=== PATIENT | male | born 1945 | race Caucasian/White ===

== ENCOUNTER 2020-05-27 11:22 | Inpatient (IN) | payer MEDICARE, OTHER ==
[~2020-05-27] VITALS: Ht 175.3 cm; Wt 88.1 kg
--- NOTE | 2020-05-27 12:20 | NUR ---
PT IS IN ROOM #1B. DR JAMA EVALUATED THE PT.
[2020-05-27 12:23] LABS: BASOPHILS % (AUTO) 0.4 % (0.0-2.0); EOSINOPHILS # (AUTO) 0.2 K/uL (0.0-0.7); LYMPHOCYTES # (AUTO) 0.6 K/uL (20.0-40.0); LYMPHOCYTES % (AUTO) 11.3 % (20.5-51.5); MEAN CORPUSCULAR HEMOGLOBIN 30.6 uug (23.8-33.4); MEAN CORPUSCULAR HGB CONC 34 g/dL (32.5-36.3); MEAN CORPUSCULAR VOLUME 91.2 fL (73.0-96.2); MONOCYTES # (AUTO) 0.6 K/uL (2.0-10.0); NEUTROPHILS # (AUTO) 4.2 K/uL (1.8-8.9); NEUTROPHILS % (AUTO) 75.3 % (38.5-71.5); PLATELET COUNT (AUTO) 119 K/uL (152-348); WHITE BLOOD COUNT (AUTO) 5.6 K/uL (3.6-10.2)
[2020-05-27 12:33] LABS: RED BLOOD CELL COUNT(AUTO) 2.12 MIL/uL (4.06-5.63)
[2020-05-27 12:35] LABS: CHLORIDE 107 mmol/L (98-107); GLUCOSE 177 mg/dL (74-106); HEMATOCRIT 19.4 % (36.7-47.1); HEMOGLOBIN 6.5 g/dL (12.5-16.3)
[2020-05-27 12:36] LABS: CARBON DIOXIDE 7 mmol/L (21-32)
[2020-05-27] MEDS ORDERED: ARIP10TA9 PO (12:36)
[2020-05-27] MEDS ORDERED: PARO25TA16 PO (12:36)
[2020-05-27] MEDS ORDERED: TAMS-3 PO (12:36)
[2020-05-27] MEDS ORDERED: FINA5TAB11 PO (12:36)
[2020-05-27] MEDS ORDERED: QUET100T PO (12:36)
[2020-05-27] MEDS ORDERED: INSU100I26 SQ (12:36)
[2020-05-27] MEDS ORDERED: QUET200T PO (12:36)
[2020-05-27] MEDS ORDERED: PANT40TA2 PO (12:36)
[2020-05-27] MEDS ORDERED: SENN-261 PO (12:36)
[2020-05-27] MEDS ORDERED: ERGO500040 PO (12:36)
[2020-05-27] MEDS ORDERED: CLON0.1T PO (12:36)
[2020-05-27] MEDS ORDERED: CALC667T2 PO (12:36)
[2020-05-27] MEDS ORDERED: FOLI0.8T2 PO (12:36)
[2020-05-27 12:40] LABS: ALANINE AMINOTRANSFERASE 59 U/L (16-63); ALKALINE PHOSPHATASE 135 U/L (50-136); ASPARTATE AMINOTRANSFERASE 13 U/L (15-37); BILIRUBIN,DIRECT 0.1 mg/dL (0.0-0.2); BILIRUBIN,TOTAL 0.4 mg/dL (0.2-1.0); LIPASE 32 U/L (73-393); TOTAL PROTEIN, SERUM 7.6 g/dL (6.4-8.2)
[2020-05-27 12:42] LABS: CREATININE 12.3 mg/dL (0.6-1.3); UREA NITROGEN, BLOOD 235 mg/dL (7-18)
[2020-05-27] MEDS ORDERED: NEBI10TA2 PO (12:43)
[2020-05-27] MEDS ORDERED: ASPI-605 PO (12:43)
[2020-05-27] MEDS ORDERED: NUT.237L36 PO (12:43)
[2020-05-27] MEDS ORDERED: DOXE50CA4 PO (12:43)
[2020-05-27] MEDS ORDERED: ROSU40TA PO (12:43)
[2020-05-27] MEDS ORDERED: FURO80TA3 PO (12:43)
[2020-05-27] MEDS ORDERED: VITAMIN A&D OINTMENT TP (12:43)
[2020-05-27] MEDS ORDERED: INSU100C SQ ×2 (12:43→12:50)
[2020-05-27] MEDS ORDERED: LOSA1TAB42 PO (12:43)
[2020-05-27] MEDS ORDERED: ACET650S24 RC (12:50)
[2020-05-27 13:39] LABS: BAND % (MANUAL) 2 % (0-10); EOSINOPHILS % (MANUAL) 4 % (0-8); LYMPHOCYTES % (MANUAL) 10 % (20-40); MONOCYTES % (MANUAL) 8 % (2-10); NEUTROPHILS % (MANUAL) 76 % (42-75)
[2020-05-27] MEDS ORDERED: MAGNESIUM HYDROXIDE 30 ML LIQUID UDC PO PRN (13:45)
[2020-05-27] MEDS ORDERED: ACETAMINOPHEN 650 MG SUPP.RECT RC PRN (13:45)
[2020-05-27] MEDS ORDERED: Z GUARD REMEDY PASTE 57 GM TUBE TOP PRN (13:45)
[2020-05-27] MEDS ORDERED: ONDANSETRON 4 MG/2 ML VIAL IV PRN (13:45)
[2020-05-27] MEDS ORDERED: HYDROCODONE/APAP 5-325MG TABLET PO PRN (13:45)
[2020-05-27] MEDS ORDERED: CLONIDINE HCL 0.1 MG TABLET PO PRN (13:45)
[2020-05-27 14:17] LABS: IRON, SERUM 177 ug/dL (50-175)
[2020-05-27 16:00] VITALS: BP 106/49
--- NOTE | 2020-05-27 16:43 | NUR ---
PT WAS TRANSFERED TO ROOM #327. REPORT WAS GIVEN TO PRINT WASHER.
[2020-05-27] MEDS ORDERED: PAROXETINE HCL 30 MG PO SCH (17:00)
[2020-05-27] MEDS: PANTOPRAZOLE SODIUM 40 MG TABLET.DR PO SCH (17:40)
[2020-05-27] MEDS: FUROSEMIDE 40 MG TABLET PO SCH (17:40)
[2020-05-27] MEDS: METOPROLOL TARTRATE 50 MG TABLET PO SCH (17:46)
[2020-05-27] MEDS: ATORVASTATIN 40 MG TABLET PO SCH (18:00)
[2020-05-27] MEDS ORDERED: HEPARIN SODIUM,PORCINE/PF 100 UNIT/ML, 5ML SYR ONE ×4 (19:15→20:00)
[2020-05-27] MEDS: CALCIUM ACETATE 667 MG CAPSULE PO SCH (19:43)
[2020-05-27] MEDS ORDERED: HEPARIN SODIUM,PORCINE 5,000 UNITS/ML VIAL SQ SCH (19:45)
[2020-05-27] MEDS ORDERED: HEPARIN SODIUM,PORCINE/PF 100 UNIT/ML, 5ML SYR XX PRN (20:00)
--- NOTE | 2020-05-27 20:01 | NUR ---
PATIENT RECEIVED IN STABLE CONDITION;PATIENT WAS DUE FOR DIALYSIS BUT PATIENT DID NOT HAVE DIALYSIS PORT AVAILABLE; MD ORDER A UNIT OF BLOOD DUE TO LOW HEMOGLOBIN ; WHEN BLOOD BROUGHT UP FROM PRODUCT WAS UNABLE TO SCAN ; BLOOD BROUGHT BACK DOWN AND LAB HAD TO TAKE BLOOD AND RELABELED AND STATED WOULD CALL WHEN BLOOD WOULD BE READY; MD DICKSON ARRIVED TO PLACE PORT. REPORT GIVEN TO ONCOMING NURSE.
--- NOTE | 2020-05-27 20:14 | NUR ---
Caesar cath inserted at bedside by Dr. Rainey in the right femoral vein, triple lumen.
--- NOTE | 2020-05-27 20:15 | NUR ---
Patient will be started on Dialysis, dialysis nurse in room.
[2020-05-27 20:38] VITALS: BP 115/57
--- NOTE | 2020-05-27 20:41 | NUR ---
Blood product given to dialysis nurse.
[2020-05-27] MEDS ORDERED: EPOETIN ALFA 20,000 UNIT/ML ML SQ ONE (21:00)
[2020-05-27] MEDS: DOXEPIN 25 MG CAPSULE PO SCH ×2 (21:00→23:56)
--- NOTE | 2020-05-27 22:09 | NUR ---
Confirmed with Dr. Cruz, only 1 unit of blood to be given. Blood transfusion finished.
[2020-05-27] MEDS: SENNOSIDES 1 TABLET PO SCH (22:24)
[2020-05-27] MEDS: QUETIAPINE FUMARATE 200 MG TABLET PO SCH (22:24)
--- NOTE | 2020-05-27 22:30 | NUR ---
Dr. Cruz came and examined patient.
--- NOTE | 2020-05-27 22:30 | NUR ---
Per Dr. Rainey, heparin only given if diaysis nurse needs it. Spoke to Chaitanya, stated he did not need the heparin. Charge nurse aware.
--- NOTE | 2020-05-27 22:35 | NUR ---
Patient was on TELE monitor, spoke to Dr. Cruz and he said that his order was Medsurg. Removed TELE box.
[2020-05-27] MEDS ORDERED: DOXEPIN 25 MG CAPSULE ONE (23:43)
--- NOTE | 2020-05-27 23:57 | NUR ---
Administered Doxepin late, medication was not available. Waited for supervisor travel trailer to bring medication.
[2020-05-28] VITALS (8 sets, daily range): BP systolic 89–119; BP diastolic 43–67
[2020-05-28 07:02] LABS: BASOPHILS % (AUTO) 0.3 % (0.0-2.0); EOSINOPHILS % (AUTO) 0.5 % (0.0-7.0); LYMPHOCYTES # (AUTO) 0.3 K/uL (20.0-40.0); LYMPHOCYTES % (AUTO) 5.7 % (20.5-51.5); MEAN CORPUSCULAR HEMOGLOBIN 30.3 uug (23.8-33.4); MEAN CORPUSCULAR HGB CONC 34 g/dL (32.5-36.3); MEAN CORPUSCULAR VOLUME 88.1 fL (73.0-96.2); MONOCYTES # (AUTO) 0.5 K/uL (2.0-10.0); MONOCYTES % (AUTO) 8.7 % (0.0-11.0); NEUTROPHILS # (AUTO) 5.1 K/uL (1.8-8.9); NEUTROPHILS % (AUTO) 84.8 % (38.5-71.5); PLATELET COUNT (AUTO) 107 K/uL (152-348)
[2020-05-28 07:04] LABS: HEMOGLOBIN 7.2 g/dL (12.5-16.3); RED BLOOD CELL COUNT(AUTO) 2.38 MIL/uL (4.06-5.63)
[2020-05-28 07:18] LABS: CARBON DIOXIDE 11 mmol/L (21-32); CHLORIDE 109 mmol/L (98-107); CHOLESTEROL 94 mg/dL (<200); GLUCOSE 129 mg/dL (74-106); HDL CHOLESTEROL 19 mg/dL (40-60); POTASSIUM 3.5 mmol/L (3.5-5.1); TRIGLYCERIDES 313 MG/DL (30-150)
--- NOTE | 2020-05-28 08:05 | NUR ---
pt is awake, responsive, no distress noted. Left hand heplock is intact. R femeral [place] port is intact, no bleeding. Breathing is non labored. side rails are up, bed is in low position. Pt is on 2L/m oxygen via [place]. Pt is A/O x 2-3
[2020-05-28 08:06] LABS: UREA NITROGEN, BLOOD 161 mg/dL (7-18)
[2020-05-28] MEDS ORDERED: HYDROCHLOROTHIAZIDE 12.5 MG CAPSULE PO SCH (09:00)
[2020-05-28] MEDS ORDERED: LOSARTAN POTASSIUM 50 MG TABLET PO SCH (09:00)
[2020-05-28] MEDS: METOPROLOL TARTRATE 50 MG TABLET PO SCH ×2 (09:00→17:00)
[2020-05-28] MEDS ORDERED: Medication Not On Formulary EA (Losartan/Hydrochlorothiazide (Losartan-Hctz 100-12.5 Mg PO SCH (09:00)
[2020-05-28] MEDS: FOLIC ACID/VITAMIN B COMP W-C TABLET PO SCH (09:52)
[2020-05-28] MEDS: ASPIRIN EC 81 MG TABLET.DR PO SCH (09:52)
[2020-05-28] MEDS: PANTOPRAZOLE SODIUM 40 MG TABLET.DR PO SCH ×2 (09:53→18:06)
[2020-05-28] MEDS: FINASTERIDE 5 MG TABLET PO SCH (09:53)
[2020-05-28] MEDS: QUETIAPINE FUMARATE 100 MG TABLET PO SCH (09:53)
[2020-05-28] MEDS: ARIPIPRAZOLE 10 MG TABLET PO SCH (09:53)
[2020-05-28] MEDS: FUROSEMIDE 40 MG TABLET PO SCH (09:53)
[2020-05-28] MEDS: CALCIUM ACETATE 667 MG CAPSULE PO SCH ×3 (09:54→18:06)
--- NOTE | 2020-05-28 12:00 | NUR ---
Pt completed dialysis, 1000 cc fluid removed, Pt tolerated well, no distress noted.
[2020-05-28] MEDS: SEVELAMER CARBONATE 800 MG TABLET PO SCH (18:05)
[2020-05-28] MEDS: ATORVASTATIN 40 MG TABLET PO SCH (18:06)
--- NOTE | 2020-05-28 19:29 | NUR ---
BLOOD TRANSFUSION ENDED AT 1600H. NO SIGNS OF INTERACTION. AM NURSE FORGOT TO CLICK THE END TRANSFUSION. PT IN NO ACUTE DISTRESS. WILL CONTINUE TO MONITOR.
--- NOTE | 2020-05-28 19:30 | NUR ---
RECEIVED PT IN NO ACUTE DISTRESS. IV INTACT . DAVID CATH INTACT. SAFETY AND COMFORT PROVIDED. WILL CONTINUE TO MONITOR.
[2020-05-28] MEDS: QUETIAPINE FUMARATE 200 MG TABLET PO SCH (20:09)
[2020-05-28] MEDS: ACETAMINOPHEN 325 MG TABLET PO PRN (20:09)
[2020-05-28] MEDS: TAMSULOSIN HCL 0.4 MG CAP.SR.24H PO SCH (20:10)
[2020-05-28] MEDS: SENNOSIDES 1 TABLET PO SCH (20:10)
[2020-05-29 04:00] VITALS: BP 99/49
--- NOTE | 2020-05-29 06:19 | NUR ---
PT IN NO ACUTE RESPIRATORY DISTRESS. IV INTACT. DAVID CATH INTACT. PRESCRIBED MEDICATION GIVEN AND PT TOLERATED IT WELL. PT TURNED AND REPOSITIONED. SAFETY AND COMFORT PROVIDED. ALL NEEDS ARE MET. WILL ENDORSE TO INCOMING NURSE FOR CONTINUITY OF CARE.
[2020-05-29 06:20] LABS: BASOPHILS % (AUTO) 0.6 % (0.0-2.0); EOSINOPHILS % (AUTO) 0.6 % (0.0-7.0); HEMATOCRIT 22.9 % (36.7-47.1); HEMOGLOBIN 7.8 g/dL (12.5-16.3); LYMPHOCYTES # (AUTO) 0.6 K/uL (20.0-40.0); LYMPHOCYTES % (AUTO) 12.6 % (20.5-51.5); MEAN CORPUSCULAR HGB CONC 34 g/dL (32.5-36.3); MONOCYTES # (AUTO) 0.7 K/uL (2.0-10.0); MONOCYTES % (AUTO) 15.3 % (0.0-11.0); NEUTROPHILS # (AUTO) 3.2 K/uL (1.8-8.9); NEUTROPHILS % (AUTO) 70.9 % (38.5-71.5); PLATELET COUNT (AUTO) 93 K/uL (152-348); WHITE BLOOD COUNT (AUTO) 4.5 K/uL (3.6-10.2)
[2020-05-29 06:28] LABS: CARBON DIOXIDE 21 mmol/L (21-32); CHLORIDE 115 mmol/L (98-107); CREATININE 6.5 mg/dL (0.6-1.3); GLUCOSE 191 mg/dL (74-106)
[2020-05-29 06:29] LABS: UREA NITROGEN, BLOOD 90 mg/dL (7-18)
--- NOTE | 2020-05-29 08:00 | NUR ---
Received pt in bed alert x 4,with O2 at 2 LPM via [place],denies pain or discomfort,HOB elevated,LT forearm IV 22 g intact,no signs and symptoms infiltration,Rt femoral roseline catheter in place , no signs and symptoms of infection, site clean and dry, safety measures in place, call light with in reach ,will continue to monitor.
[2020-05-29] MEDS: PANTOPRAZOLE SODIUM 40 MG TABLET.DR PO SCH ×2 (08:41→17:08)
[2020-05-29] MEDS: ARIPIPRAZOLE 10 MG TABLET PO SCH (08:41)
[2020-05-29] MEDS: SEVELAMER CARBONATE 800 MG TABLET PO SCH ×3 (08:42→17:08)
[2020-05-29] MEDS: ASPIRIN EC 81 MG TABLET.DR PO SCH (08:42)
[2020-05-29] MEDS: FINASTERIDE 5 MG TABLET PO SCH (08:42)
[2020-05-29] MEDS: LOSARTAN POTASSIUM 50 MG TABLET PO SCH (08:43)
[2020-05-29] MEDS: QUETIAPINE FUMARATE 100 MG TABLET PO SCH (08:44)
[2020-05-29] MEDS: CALCIUM ACETATE 667 MG CAPSULE PO SCH ×3 (08:44→17:08)
[2020-05-29] MEDS: FOLIC ACID/VITAMIN B COMP W-C TABLET PO SCH (08:44)
[2020-05-29] MEDS: METOPROLOL TARTRATE 50 MG TABLET PO SCH ×2 (08:44→17:09)
--- NOTE | 2020-05-29 09:00 | NUR ---
Pt states he feels nauseous, enrichment specialist stated patient had 1x episodes of emesis,will provide patient with PRN zofran ,will keep head of bed elevated to prevent aspiration, will give patient green vomit bag.will continue to monitor.
--- NOTE | 2020-05-29 10:26 | NUR ---
Dialysis nurse in room
[2020-05-29] MEDS ORDERED: ALBUMIN HUMAN 25% 100 ML IV ONE (11:30)
[2020-05-29 11:32] VITALS: BP 103/38
[2020-05-29 11:54] LABS: EOSINOPHILS % (MANUAL) 1 % (0-8); LYMPHOCYTES % (MANUAL) 14 % (20-40); MONOCYTES % (MANUAL) 16 % (2-10); NEUTROPHILS % (MANUAL) 69 % (42-75)
[2020-05-29 12:44] LABS: HEPATITIS B SURFACE AB Non Reactive (.); HEPATITIS B SURFACE AG Negative (Negative)
--- NOTE | 2020-05-29 14:02 | NUR ---
Dialysis complete, no fluid removed, Pt stable, SCD pumps on for DVt ppx.
[2020-05-29] MEDS ORDERED: POTASSIUM CHLORIDE 10 MEQ TAB.PRT.SR PO ONE (14:30)
[2020-05-29 16:24] VITALS: BP 117/59
[2020-05-29] MEDS: ATORVASTATIN 40 MG TABLET PO SCH (17:08)
--- NOTE | 2020-05-29 20:00 | NUR ---
Patient received into care resting in bed awake and alert, and oriented x3 and has no complaints of pain or discomfort at this time. Left FA IV cath is patent, intact, and flushing easily. All safety and fall precaution measures are in place. Call light and personal items are within reach. Will continue to monitor and assess.
[2020-05-29 20:06] VITALS: BP 130/52
[2020-05-29] MEDS: QUETIAPINE FUMARATE 200 MG TABLET PO SCH (21:13)
[2020-05-29] MEDS: SENNOSIDES 1 TABLET PO SCH (21:13)
[2020-05-29] MEDS: TAMSULOSIN HCL 0.4 MG CAP.SR.24H PO SCH (21:13)
[2020-05-29] MEDS: DOXEPIN 25 MG CAPSULE PO SCH (21:14)
[2020-05-30] VITALS (8 sets, daily range): BP systolic 90–118; BP diastolic 43–68
--- NOTE | 2020-05-30 05:00 | NUR ---
Patient slept throughout night without any complaints of pain/discomfort or acute distress. All prescribed medications provided as ordered and tolerated well, with no adverse side effects verbalized by patient or noted/observed by this nurse. All safety and fall precautions remain in place. All personal items and call light remain within reach.
[2020-05-30 06:36] LABS: LYMPHOCYTES # (AUTO) 0.6 K/uL (20.0-40.0); MONOCYTES # (AUTO) 0.6 K/uL (2.0-10.0); NEUTROPHILS # (AUTO) 2.4 K/uL (1.8-8.9)
[2020-05-30 06:38] LABS: BASOPHILS % (AUTO) 0.8 % (0.0-2.0); EOSINOPHILS # (AUTO) 0.2 K/uL (0.0-0.7); EOSINOPHILS % (AUTO) 3.9 % (0.0-7.0); HEMATOCRIT 21.2 % (36.7-47.1); LYMPHOCYTES % (AUTO) 16.8 % (20.5-51.5); MEAN CORPUSCULAR HEMOGLOBIN 29.7 uug (23.8-33.4); MEAN CORPUSCULAR HGB CONC 34 g/dL (32.5-36.3); MEAN CORPUSCULAR VOLUME 87.6 fL (73.0-96.2); NEUTROPHILS % (AUTO) 62.5 % (38.5-71.5); PLATELET COUNT (AUTO) 90 K/uL (152-348); WHITE BLOOD COUNT (AUTO) 3.9 K/uL (3.6-10.2)
[2020-05-30 06:40] LABS: RED BLOOD CELL COUNT(AUTO) 2.42 MIL/uL (4.06-5.63)
[2020-05-30 06:44] LABS: CARBON DIOXIDE 26 mmol/L (21-32); CHLORIDE 112 mmol/L (98-107); CREATININE 4.8 mg/dL (0.6-1.3); GLUCOSE 115 mg/dL (74-106); MAGNESIUM 1.8 mg/dL (1.8-2.4); PHOSPHOROUS 5.4 mg/dL (2.5-4.9); POTASSIUM 3.5 mmol/L (3.5-5.1); UREA NITROGEN, BLOOD 52 mg/dL (7-18)
[2020-05-30 06:47] LABS: HEMOGLOBIN 7.2 g/dL (12.5-16.3)
[2020-05-30] MEDS: ASPIRIN EC 81 MG TABLET.DR PO SCH (08:11)
[2020-05-30] MEDS: CALCIUM ACETATE 667 MG CAPSULE PO SCH ×3 (08:11→17:33)
[2020-05-30] MEDS: FINASTERIDE 5 MG TABLET PO SCH (08:11)
[2020-05-30] MEDS: ARIPIPRAZOLE 10 MG TABLET PO SCH (08:11)
[2020-05-30] MEDS: FOLIC ACID/VITAMIN B COMP W-C TABLET PO SCH (08:12)
[2020-05-30] MEDS: SEVELAMER CARBONATE 800 MG TABLET PO SCH ×3 (08:12→17:33)
[2020-05-30] MEDS: PANTOPRAZOLE SODIUM 40 MG TABLET.DR PO SCH ×2 (08:12→16:49)
[2020-05-30] MEDS: QUETIAPINE FUMARATE 100 MG TABLET PO SCH (08:12)
[2020-05-30] MEDS: METOPROLOL TARTRATE 50 MG TABLET PO SCH ×2 (08:45→16:49)
[2020-05-30] MEDS: LOSARTAN POTASSIUM 50 MG TABLET PO SCH (08:45)
[2020-05-30 09:22] LABS: EOSINOPHILS % (MANUAL) 4 % (0-8); LYMPHOCYTES % (MANUAL) 17 % (20-40); MONOCYTES % (MANUAL) 15 % (2-10); NEUTROPHILS % (MANUAL) 64 % (42-75)
--- NOTE | 2020-05-30 11:04 | NUR ---
WOUND CARE CONSULT: PT PRESENTS WITH PARTIAL THICKNESS WOUND TO RT LOWER BUTTOCK WHICH HE (PT) STATES HE HAS HAD FOR ABOUT A MONTH. PT ALSO NOTED TO HAVE BILATERAL LOWER LEG DRY SCABS, PRESENT ON ADMISSION. PT STATES THAT HE PREVIOUSLY HAD ITCHY LEGS AND SCRATCHED HIS LOWER LEGS. NO ERYTHEMA, DRAINAGE OR TENDERNESS NOTED. CURRENT RUSTY SCORE IS 18. WILL SEE PRN. BURNHAM IN AGREEMENT WITH PLAN OF CARE. Addendum: 05/30/20 at 1106 by DAINA HUERTA RN Amended: Links added.
--- NOTE | 2020-05-30 12:14 | NUR ---
one unit prbc given with dialysis without any adverse reaction noted,vs are stable
--- NOTE | 2020-05-30 14:33 | NUR ---
dialysis done 500ml fluids removed
[2020-05-30] MEDS: ATORVASTATIN 40 MG TABLET PO SCH (17:33)
--- NOTE | 2020-05-30 20:00 | NUR ---
Patient received into care, laying in bed asleep, but easy to rouse. Patient is alert/oriented x3 and has no complaints of pain or discomfort at this time. All safety and fall precaution measures are in place. Strict I&Os for pt noted and will be carried out this shift. Call light and personal items within reach at all times. Will continue to monitor and assess.
--- NOTE | 2020-05-30 20:22 | NUR ---
This nurse was notified by MILL ORDER SCHEDULER that pt has a temperature of 99.6. This nurse will institute cooling measures and provide pt PRN Tylenol to address increased body temperature.
[2020-05-30] MEDS: TAMSULOSIN HCL 0.4 MG CAP.SR.24H PO SCH (20:40)
[2020-05-30] MEDS: SENNOSIDES 1 TABLET PO SCH (20:40)
[2020-05-30] MEDS: QUETIAPINE FUMARATE 200 MG TABLET PO SCH (20:40)
[2020-05-30] MEDS: DOXEPIN 25 MG CAPSULE PO SCH (20:40)
[2020-05-30] MEDS: ACETAMINOPHEN 325 MG TABLET PO PRN (20:40)
--- NOTE | 2020-05-31 | NUR ---
Received report from CARLOS EDUARDO Carrasquillo. Patient in bed, sleeping easy to arouse. Patient has no signs of acute distress or pain at this time. Patient is afebrile (98.9). Safety measures in place. Bed low and locked in position. Call light and personal belongings within reach. Will continue with the plan of care.
[2020-05-31 06:14] VITALS: BP 123/63
[2020-05-31 06:44] LABS: BASOPHILS % (AUTO) 0.8 % (0.0-2.0); EOSINOPHILS # (AUTO) 0.3 K/uL (0.0-0.7); EOSINOPHILS % (AUTO) 6.1 % (0.0-7.0); HEMATOCRIT 23.5 % (36.7-47.1); HEMOGLOBIN 8.2 g/dL (12.5-16.3); LYMPHOCYTES # (AUTO) 0.9 K/uL (20.0-40.0); LYMPHOCYTES % (AUTO) 19.7 % (20.5-51.5); MEAN CORPUSCULAR HEMOGLOBIN 30.6 uug (23.8-33.4); MEAN CORPUSCULAR HGB CONC 35 g/dL (32.5-36.3); MEAN CORPUSCULAR VOLUME 87.9 fL (73.0-96.2); MONOCYTES # (AUTO) 0.7 K/uL (2.0-10.0); MONOCYTES % (AUTO) 13.9 % (0.0-11.0); NEUTROPHILS # (AUTO) 2.9 K/uL (1.8-8.9); NEUTROPHILS % (AUTO) 59.5 % (38.5-71.5); PLATELET COUNT (AUTO) 81 K/uL (152-348); RED BLOOD CELL COUNT(AUTO) 2.68 MIL/uL (4.06-5.63); WHITE BLOOD COUNT (AUTO) 4.8 K/uL (3.6-10.2)
[2020-05-31 07:00] LABS: CARBON DIOXIDE 30 mmol/L (21-32); CHLORIDE 109 mmol/L (98-107); CREATININE 3.8 mg/dL (0.6-1.3); GLUCOSE 105 mg/dL (74-106); MAGNESIUM 1.8 mg/dL (1.8-2.4); PHOSPHOROUS 3.7 mg/dL (2.5-4.9); POTASSIUM 3.6 mmol/L (3.5-5.1); UREA NITROGEN, BLOOD 40 mg/dL (7-18)
--- NOTE | 2020-05-31 07:03 | NUR ---
Patient slept intermittently through the night. Patient is awake and denies any acute distress or pain at this time. Vitals are stable. Comfort care and needs attended. Fall precaution maintained. Safety measures in place. Bed low and locked in position. Call light and personal belongings within reach. Will endorse to the oncoming nurse accordingly.
[2020-05-31] MEDS ORDERED: DEXTROSE 50% 50 ML DISP.SYRIN IV PRN (07:30)
--- NOTE | 2020-05-31 07:43 | NUR ---
RECEIVED PATIENT IN BED, ASLEEP, EASY TO WAKE UP, AOX3. DENIES SOB OR CHEST PAIN. NO SIGNS OF DISTRESS AT THIS TIME. PAIN MANAGEMENT HAS BEEN ADDRESSED AND PATIENT DENIES PAIN AT THIS TIME. ALL NEEDS MET AT THIS TIME. SAFETY AND FALL PREVENTION IN PLACE. BED LOW AND LOCKED. CALL LIGHT IN REACH. WILL CONTINUE TO MONITOR.
[2020-05-31] MEDS: BLOOD SUGAR DIAGNOSTIC 1 EACH STRIP VI SCH ×4 (08:30→21:07)
[2020-05-31] MEDS: ARIPIPRAZOLE 10 MG TABLET PO SCH (08:33)
[2020-05-31] MEDS: SEVELAMER CARBONATE 800 MG TABLET PO SCH ×3 (08:33→17:00)
[2020-05-31] MEDS: FINASTERIDE 5 MG TABLET PO SCH (08:33)
[2020-05-31] MEDS: CALCIUM ACETATE 667 MG CAPSULE PO SCH ×3 (08:36→17:01)
[2020-05-31] MEDS: ASPIRIN EC 81 MG TABLET.DR PO SCH (08:37)
[2020-05-31] MEDS: QUETIAPINE FUMARATE 100 MG TABLET PO SCH (08:37)
[2020-05-31] MEDS: METOPROLOL TARTRATE 50 MG TABLET PO SCH ×2 (08:37→17:01)
[2020-05-31] MEDS: LOSARTAN POTASSIUM 50 MG TABLET PO SCH (08:37)
[2020-05-31] MEDS: PANTOPRAZOLE SODIUM 40 MG TABLET.DR PO SCH ×2 (08:37→17:01)
[2020-05-31] MEDS: FOLIC ACID/VITAMIN B COMP W-C TABLET PO SCH (08:38)
[2020-05-31 12:34] VITALS: BP 117/58
[2020-05-31] MEDS: INSULIN REGULAR, HUMAN 300 UNIT/3 ML VIAL SQ PRN (13:12)
[2020-05-31 16:25] VITALS: BP 115/58
[2020-05-31] MEDS: ATORVASTATIN 40 MG TABLET PO SCH (17:01)
--- NOTE | 2020-05-31 19:43 | NUR ---
AOX4. NO SIGNS OF DISTRESS THROUGHOUT THE SHIFT. PAIN MANAGEMENT HAS BEEN ADDRESSED. REPORT GIVEN TO UNIVERSITY REGISTRAR NURSE.
[2020-05-31 20:19] VITALS: BP 116/50
[2020-05-31] MEDS: INSULIN GLARGINE,HUM 300 UNITS/3 ML CARTRIDGE SQ SCH (21:00)
[2020-05-31] MEDS: SENNOSIDES 1 TABLET PO SCH (21:03)
[2020-05-31] MEDS: QUETIAPINE FUMARATE 200 MG TABLET PO SCH (21:03)
[2020-05-31] MEDS: TAMSULOSIN HCL 0.4 MG CAP.SR.24H PO SCH (21:03)
[2020-05-31] MEDS: DOXEPIN 25 MG CAPSULE PO SCH (21:03)
[2020-06-01 05:22] VITALS: BP 123/63
--- NOTE | 2020-06-01 07:00 | NUR ---
pt is A/O x 4. Patient is awake, responsive, no distress noted. Left Forearm 20G intact, flushed. R femeral [place] port is intact triple lumen, no bleeding. All need attended to. Denies any pain. Breathing is non labored, RA No signs and symptoms of SOB. Safety measure in place,side rails are up, bed is in low position, call light within reach. Continue to monitor, endorse report to oncoming nurse.
[2020-06-01] MEDS: BLOOD SUGAR DIAGNOSTIC 1 EACH STRIP VI SCH ×4 (07:07→21:04)
[2020-06-01 07:47] LABS: CARBON DIOXIDE 27 mmol/L (21-32); CHLORIDE 102 mmol/L (98-107); CREATININE 4.7 mg/dL (0.6-1.3); GLUCOSE 111 mg/dL (74-106); POTASSIUM 3.4 mmol/L (3.5-5.1); UREA NITROGEN, BLOOD 52 mg/dL (7-18)
[2020-06-01 07:49] LABS: BASOPHILS % (AUTO) 0.9 % (0.0-2.0); EOSINOPHILS # (AUTO) 0.3 K/uL (0.0-0.7); EOSINOPHILS % (AUTO) 5.3 % (0.0-7.0); HEMATOCRIT 24.5 % (36.7-47.1); HEMOGLOBIN 8.3 g/dL (12.5-16.3); LYMPHOCYTES # (AUTO) 0.8 K/uL (20.0-40.0); LYMPHOCYTES % (AUTO) 15.4 % (20.5-51.5); MEAN CORPUSCULAR HGB CONC 34 g/dL (32.5-36.3); MEAN CORPUSCULAR VOLUME 88.9 fL (73.0-96.2); MONOCYTES # (AUTO) 0.6 K/uL (2.0-10.0); MONOCYTES % (AUTO) 11.8 % (0.0-11.0); NEUTROPHILS # (AUTO) 3.4 K/uL (1.8-8.9); NEUTROPHILS % (AUTO) 66.6 % (38.5-71.5); PLATELET COUNT (AUTO) 93 K/uL (152-348); RED BLOOD CELL COUNT(AUTO) 2.76 MIL/uL (4.06-5.63); WHITE BLOOD COUNT (AUTO) 5.2 K/uL (3.6-10.2)
[2020-06-01] MEDS: QUETIAPINE FUMARATE 100 MG TABLET PO SCH (08:08)
[2020-06-01] MEDS: FOLIC ACID/VITAMIN B COMP W-C TABLET PO SCH (08:08)
[2020-06-01] MEDS: PANTOPRAZOLE SODIUM 40 MG TABLET.DR PO SCH ×2 (08:08→16:33)
[2020-06-01] MEDS: CALCIUM ACETATE 667 MG CAPSULE PO SCH ×3 (08:08→17:02)
[2020-06-01] MEDS: SEVELAMER CARBONATE 800 MG TABLET PO SCH ×3 (08:08→17:02)
[2020-06-01] MEDS: ARIPIPRAZOLE 10 MG TABLET PO SCH (08:08)
[2020-06-01] MEDS: FINASTERIDE 5 MG TABLET PO SCH (08:09)
[2020-06-01] MEDS: LOSARTAN POTASSIUM 50 MG TABLET PO SCH (08:09)
[2020-06-01] MEDS: ASPIRIN EC 81 MG TABLET.DR PO SCH (08:09)
[2020-06-01] MEDS: METOPROLOL TARTRATE 50 MG TABLET PO SCH ×2 (08:09→16:33)
[2020-06-01] MEDS ORDERED: POTASSIUM CHLORIDE 20 MEQ TAB.PRT.SR PO ONE (11:00)
[2020-06-01 11:36] VITALS: BP 140/61
[2020-06-01] MEDS: INSULIN REGULAR, HUMAN 300 UNIT/3 ML VIAL SQ PRN ×2 (11:55→21:14)
[2020-06-01 15:45] VITALS: BP 122/60
[2020-06-01] MEDS: ATORVASTATIN 40 MG TABLET PO SCH (17:02)
[2020-06-01 20:47] VITALS: BP 125/58
[2020-06-01] MEDS: TAMSULOSIN HCL 0.4 MG CAP.SR.24H PO SCH (20:57)
[2020-06-01] MEDS: QUETIAPINE FUMARATE 200 MG TABLET PO SCH (20:57)
[2020-06-01] MEDS: SENNOSIDES 1 TABLET PO SCH (20:57)
[2020-06-01] MEDS: DOXEPIN 25 MG CAPSULE PO SCH (20:57)
[2020-06-01] MEDS: INSULIN GLARGINE,HUM 300 UNITS/3 ML CARTRIDGE SQ SCH (21:15)
--- NOTE | 2020-06-01 22:00 | NUR ---
Patient received laying in bed asleep, but easy to rouse. Patient is alert/oriented x3 and has no complaints of pain or discomfort at this time. All safety and fall precaution measures are in place. Strict I&Os for pt noted and will be carried out this shift. all due medications administered and tolerated well. Blood sugar 168, administered 3units of insulin. Call light and personal items within reach at all times. Will continue to monitor and assess.
[2020-06-02] VITALS (8 sets, daily range): BP systolic 117–129; BP diastolic 56–80
--- NOTE | 2020-06-02 05:18 | NUR ---
Dialysis nurse in patients room
[2020-06-02 06:22] LABS: BASOPHILS % (AUTO) 0.7 % (0.0-2.0); EOSINOPHILS # (AUTO) 0.2 K/uL (0.0-0.7); EOSINOPHILS % (AUTO) 5.2 % (0.0-7.0); HEMATOCRIT 21.4 % (36.7-47.1); LYMPHOCYTES # (AUTO) 0.7 K/uL (20.0-40.0); LYMPHOCYTES % (AUTO) 16.1 % (20.5-51.5); MEAN CORPUSCULAR HEMOGLOBIN 30.2 uug (23.8-33.4); MEAN CORPUSCULAR HGB CONC 34 g/dL (32.5-36.3); MEAN CORPUSCULAR VOLUME 88.9 fL (73.0-96.2); MONOCYTES # (AUTO) 0.5 K/uL (2.0-10.0); MONOCYTES % (AUTO) 11.6 % (0.0-11.0); NEUTROPHILS % (AUTO) 66.4 % (38.5-71.5); PLATELET COUNT (AUTO) 88 K/uL (152-348); WHITE BLOOD COUNT (AUTO) 4.5 K/uL (3.6-10.2)
[2020-06-02 06:31] LABS: CARBON DIOXIDE 26 mmol/L (21-32); CHLORIDE 103 mmol/L (98-107); CREATININE 5.3 mg/dL (0.6-1.3); GLUCOSE 122 mg/dL (74-106); POTASSIUM 3.6 mmol/L (3.5-5.1); UREA NITROGEN, BLOOD 59 mg/dL (7-18)
[2020-06-02 06:37] LABS: RED BLOOD CELL COUNT(AUTO) 2.41 MIL/uL (4.06-5.63)
[2020-06-02 06:40] LABS: HEMOGLOBIN 7.3 g/dL (12.5-16.3)
--- NOTE | 2020-06-02 06:45 | NUR ---
Critical lab value reported from lab 7.3 hemoglobin will notify continuous absorption process operator doctor
--- NOTE | 2020-06-02 07:06 | NUR ---
Dr. Cruz notified of critical hemoglobin level, no new orders.
[2020-06-02] MEDS: BLOOD SUGAR DIAGNOSTIC 1 EACH STRIP VI SCH ×4 (07:10→21:10)
[2020-06-02] MEDS: SEVELAMER CARBONATE 800 MG TABLET PO SCH ×3 (08:00→17:03)
[2020-06-02] MEDS: CALCIUM ACETATE 667 MG CAPSULE PO SCH ×3 (08:00→17:03)
[2020-06-02] MEDS: LOSARTAN POTASSIUM 50 MG TABLET PO SCH (08:33)
[2020-06-02] MEDS: METOPROLOL TARTRATE 50 MG TABLET PO SCH ×2 (08:33→16:07)
[2020-06-02 08:45] LABS: EOSINOPHILS % (MANUAL) 1 % (0-8); LYMPHOCYTES % (MANUAL) 22 % (20-40); MONOCYTES % (MANUAL) 3 % (2-10); NEUTROPHILS % (MANUAL) 74 % (42-75)
[2020-06-02] MEDS: PANTOPRAZOLE SODIUM 40 MG TABLET.DR PO SCH ×2 (09:00→16:03)
[2020-06-02] MEDS: ACETAMINOPHEN 325 MG TABLET PO PRN (10:51)
[2020-06-02] MEDS ORDERED: LIDOCAINE 0.5% MPF 50 ML VIAL ONE (12:12)
[2020-06-02] MEDS ORDERED: IOPAMIDOL 15 ML VIAL IT ONE (12:13)
[2020-06-02] MEDS ORDERED: HEPARIN SODIUM,PORCINE 1,000 UNITS/ML VIAL ONE ×2 (12:13→12:14)
--- NOTE | 2020-06-02 13:19 | NUR ---
pt went to or via bed for procedure in stable condition
[2020-06-02] MEDS ORDERED: FENTANYL CITRATE 100 MCG/2 ML AMPUL ONE (13:30)
--- NOTE | 2020-06-02 15:22 | NUR ---
pt received from recovery room in stable condition
[2020-06-02] MEDS: FINASTERIDE 5 MG TABLET PO SCH (15:30)
[2020-06-02] MEDS: FOLIC ACID/VITAMIN B COMP W-C TABLET PO SCH (15:30)
[2020-06-02] MEDS: ARIPIPRAZOLE 10 MG TABLET PO SCH (15:30)
[2020-06-02] MEDS: ASPIRIN EC 81 MG TABLET.DR PO SCH (15:30)
[2020-06-02] MEDS: QUETIAPINE FUMARATE 100 MG TABLET PO SCH (15:30)
[2020-06-02] MEDS: ATORVASTATIN 40 MG TABLET PO SCH (17:18)
--- NOTE | 2020-06-02 19:20 | NUR ---
Patient received in bed. Patient is awake and denies any acute distress or pain at this time. Patient is on room air and saturating WNL. Vitals are stable. Patient has a L. sided permacath and is dry, intact and no sign of infection noted. Patient is on strict I&O. Safety measures in place. Bed low and locked in position. Call light and personal belongings within reach. Will continue with the plan of care.
[2020-06-02] MEDS: SENNOSIDES 1 TABLET PO SCH (20:59)
[2020-06-02] MEDS: TAMSULOSIN HCL 0.4 MG CAP.SR.24H PO SCH (20:59)
[2020-06-02] MEDS: DOXEPIN 25 MG CAPSULE PO SCH (20:59)
[2020-06-02] MEDS: QUETIAPINE FUMARATE 200 MG TABLET PO SCH (20:59)
[2020-06-02] MEDS: INSULIN GLARGINE,HUM 300 UNITS/3 ML CARTRIDGE SQ SCH (21:11)
[2020-06-02] MEDS: INSULIN REGULAR, HUMAN 300 UNIT/3 ML VIAL SQ PRN (21:15)
[2020-06-03 05:48] VITALS: BP 124/63
[2020-06-03] MEDS: BLOOD SUGAR DIAGNOSTIC 1 EACH STRIP VI SCH ×3 (06:40→17:35)
[2020-06-03 06:42] LABS: CARBON DIOXIDE 29 mmol/L (21-32); CHLORIDE 104 mmol/L (98-107); CREATININE 4.3 mg/dL (0.6-1.3); GLUCOSE 96 mg/dL (74-106); POTASSIUM 3.8 mmol/L (3.5-5.1); UREA NITROGEN, BLOOD 40 mg/dL (7-18)
--- NOTE | 2020-06-03 06:51 | NUR ---
Patient slept intermittently through the night. Patient is awake and denies any acute distress or pain at this time. Vitals WNL. Prescribed medications given, patient tolerated. AM blood sugar was 93, offered snacks, will continue to monitor. Comfort care and needs attended. Fall and Aspiration precaution maintained. Safety measures in place. Bed low and locked in position. Call light within reach. Will endorse to the oncoming nurse accordingly.
[2020-06-03 07:02] LABS: BASOPHILS % (AUTO) 0.5 % (0.0-2.0); EOSINOPHILS # (AUTO) 0.3 K/uL (0.0-0.7); EOSINOPHILS % (AUTO) 5.1 % (0.0-7.0); HEMATOCRIT 25.7 % (36.7-47.1); HEMOGLOBIN 8.8 g/dL (12.5-16.3); LYMPHOCYTES # (AUTO) 0.7 K/uL (20.0-40.0); LYMPHOCYTES % (AUTO) 11.9 % (20.5-51.5); MEAN CORPUSCULAR HEMOGLOBIN 30.4 uug (23.8-33.4); MEAN CORPUSCULAR HGB CONC 34 g/dL (32.5-36.3); MEAN CORPUSCULAR VOLUME 88.8 fL (73.0-96.2); MONOCYTES # (AUTO) 0.7 K/uL (2.0-10.0); MONOCYTES % (AUTO) 11.5 % (0.0-11.0); NEUTROPHILS # (AUTO) 4.2 K/uL (1.8-8.9); PLATELET COUNT (AUTO) 103 K/uL (152-348); RED BLOOD CELL COUNT(AUTO) 2.89 MIL/uL (4.06-5.63); WHITE BLOOD COUNT (AUTO) 5.9 K/uL (3.6-10.2)
[2020-06-03] MEDS: CALCIUM ACETATE 667 MG CAPSULE PO SCH ×3 (08:00→17:34)
--- NOTE | 2020-06-03 08:00 | NUR ---
Patient in bed ,alert, able to make needs known, denies pain , LT chest perma cath in place, dressing intact , clean and dry, fall precaution implemented. IV line on RT forearm ,no s/s o infiltration, wound dressing change as ordered.Rt buttock wound no drainage noted.safety measures in placed.Bed alarm on.
[2020-06-03] MEDS: FINASTERIDE 5 MG TABLET PO SCH (09:00)
[2020-06-03] MEDS: FOLIC ACID/VITAMIN B COMP W-C TABLET PO SCH (09:00)
[2020-06-03] MEDS: PANTOPRAZOLE SODIUM 40 MG TABLET.DR PO SCH ×2 (09:00→17:00)
[2020-06-03] MEDS: LOSARTAN POTASSIUM 50 MG TABLET PO SCH (09:13)
[2020-06-03] MEDS: ASPIRIN EC 81 MG TABLET.DR PO SCH (09:14)
[2020-06-03] MEDS: QUETIAPINE FUMARATE 100 MG TABLET PO SCH (09:14)
[2020-06-03] MEDS: ARIPIPRAZOLE 10 MG TABLET PO SCH (09:14)
[2020-06-03] MEDS: SEVELAMER CARBONATE 800 MG TABLET PO SCH ×3 (09:16→17:34)
[2020-06-03] MEDS: METOPROLOL TARTRATE 50 MG TABLET PO SCH ×2 (09:16→17:00)
[2020-06-03 11:07] LABS: HEPATITIS A AB, TOTAL Positive (Negative); HEPATITIS B SURFACE AB Non Reactive (.)
[2020-06-03] MEDS: INSULIN REGULAR, HUMAN 300 UNIT/3 ML VIAL SQ PRN ×2 (11:33→17:32)
[2020-06-03 11:54] VITALS: BP 123/85
[2020-06-03 15:44] VITALS: BP 95/59
[2020-06-03] MEDS ORDERED: PANT40TA2 PO (16:12)
[2020-06-03] MEDS ORDERED: DOXE25CA18 PO (16:12)
[2020-06-03] MEDS ORDERED: LOSA50TA3 PO (16:12)
[2020-06-03] MEDS ORDERED: ACET325T53 PO (16:12)
[2020-06-03] MEDS ORDERED: METO25TA6 PO (16:12)
[2020-06-03] MEDS ORDERED: SEVE800T7 PO (16:12)
[2020-06-03] MEDS ORDERED: TAMS-3 PO (16:12)
[2020-06-03] MEDS ORDERED: HYDR-3972 PO (16:12)
--- NOTE | 2020-06-03 16:30 | NUR ---
Surgical DRAPERY CUTTER MACHINE here to see pt. DRAPERY CUTTER MACHINE suggest to put ice on perma cath site pt refused. Discussed importance on putting ice to help decrease swelling on surgical site. pt continues to refuse ice.
[2020-06-03] MEDS: ATORVASTATIN 40 MG TABLET PO SCH (17:34)
--- NOTE | 2020-06-03 17:45 | NUR ---
Discharged instruction given to patient and cousin /Edis , instructed to follow up with Primary Doctor with in one week, renal HD set up by case management , , and Tuesday at 13:30 ,Discussed s/s of infection of perma cath , listed medication to be given tonight patient and cousin verbalized understanding of given instructions. Removed IV line on rt forearm, no active bleeding noted. pt refused afternoon meds. Discussed importance of medications to patient but pt continues to refuse Meds. Pt to follow up with vaccination with primary doctor. Pt is in no acute distress upon discharge. Home health set up by case management. Prescriptions, permacath card, and copy of home health order given to patient.
== END 2020-06-03 17:55 | disposition home health service (06) | DRG 291 ==
LOC: ER 11:22 → TELE3 15:10 → MEDSURG3 22:22
PROVIDERS: ADMIT Family Medicine; ATTEND Internal Medicine
PROC: 06HM33Z Insertion of Infusion Device into Right Femoral Vein, Percutaneous Approach (ICD-10-PCS; principal; 2020-05-27)
PROC: B54BZZA Ultrasonography of Right Lower Extremity Veins, Guidance (ICD-10-PCS; 2020-05-27)
PROC: 5A1D70Z Performance of Urinary Filtration, Intermittent, Less than 6 Hours Per Day (ICD-10-PCS; 2020-05-27)
PROC: 30243N1 Transfusion of Nonautologous Red Blood Cells into Central Vein, Percutaneous Approach (ICD-10-PCS; 2020-05-27)
PROC: 0JH63XZ Insertion of Tunneled Vascular Access Device into Chest Subcutaneous Tissue and Fascia, Percutaneous Approach (ICD-10-PCS; 2020-06-02)
PROC: 05HN33Z Insertion of Infusion Device into Left Internal Jugular Vein, Percutaneous Approach (ICD-10-PCS; 2020-06-02)
PROC: B544ZZA Ultrasonography of Left Jugular Veins, Guidance (ICD-10-PCS; 2020-06-02)
PROC: 5A1D70Z Performance of Urinary Filtration, Intermittent, Less than 6 Hours Per Day (ICD-10-PCS; 2020-06-02)
DX: I13.2 Hypertensive heart and chronic kidney disease with heart failure and with stage 5 chronic kidney disease, or end stage renal disease (principal); N18.6 End stage renal disease; G93.41 Metabolic encephalopathy; I50.33 Acute on chronic diastolic (congestive) heart failure; D68.69 Other thrombophilia; E44.1 Mild protein-calorie malnutrition; E87.0 Hyperosmolality and hypernatremia; E87.3 Alkalosis; E11.22 Type 2 diabetes mellitus with diabetic chronic kidney disease; D63.1 Anemia in chronic kidney disease; E11.65 Type 2 diabetes mellitus with hyperglycemia; E83.39 Other disorders of phosphorus metabolism; E83.51 Hypocalcemia; E87.6 Hypokalemia; F03.90 Unspecified dementia, unspecified severity, without behavioral disturbance, psychotic disturbance, mood disturbance, and anxiety; M19.90 Unspecified osteoarthritis, unspecified site; Z79.82 Long term (current) use of aspirin; Z91.14 Patient's other noncompliance with medication regimen; E88.09 Other disorders of plasma-protein metabolism, not elsewhere classified; I25.10 Atherosclerotic heart disease of native coronary artery without angina pectoris; N40.0 Benign prostatic hyperplasia without lower urinary tract symptoms; F41.9 Anxiety disorder, unspecified; Z68.28 Body mass index [BMI] 28.0-28.9, adult; E83.9 Disorder of mineral metabolism, unspecified; F17.210 Nicotine dependence, cigarettes, uncomplicated; F32.9 Major depressive disorder, single episode, unspecified; Z79.4 Long term (current) use of insulin
CPT/HCPCS: 36415; 70030-TC; 71045; 83550; 83605; 83690; 83735; 84100; 85025; 85730; 86705; 86706; 86708; 86803; 86850; 86900; 86901; 86920; 87040; 87340; 90937; 93005; 93307; A4649; A4663; G0378; J0885; J1642; J1644; J1815; J2405; J3010; J3490; J7050; P9016-BL; P9021; P9047; Q9967; U0003-CS